=== PATIENT | female | born 1975 | race Hispanic/Latino ===

== ENCOUNTER → 2018-08-11 | Outpatient (CLI) | payer SELFPAY | LOC: LAB.O 10:05 | PROVIDERS: ATTEND Nurse Practitioner Family | DX: R73.9 Hyperglycemia, unspecified (principal) ==

== ENCOUNTER → 2018-12-20 | Outpatient (CLI) | payer OTHER | LOC: LAB.O 07:34 | PROVIDERS: ATTEND Nurse Practitioner Family | DX: E11.65 Type 2 diabetes mellitus with hyperglycemia (principal) ==

== ENCOUNTER → 2019-10-28 | Outpatient (CLI) | payer SELFPAY ==
--- NOTE | 2019-10-28 13:26 | US ---
EXAM DESCRIPTION: Abdomen,Limited: ULTRASOUND. CLINICAL HISTORY: RIGHT UPPER QUADRANT PAIN COMPARISON: Ultrasound gallbladder October 2013. Images only. TECHNIQUE: Transabdominal scanning: lema-scale mode. Doppler mode. FINDINGS: Gallbladder: normal size, shape, echogenicity; no intraluminal stones or sludge. No fluid around the gallbladder. No wall thickening. 2.4 mm. Non-tender with transducer pressure. Common bile duct: caliber 5.7 mm within normal limits. Liver: Increased echogenicity; contour liver capsule smooth where seen. No fluid around the liver. Intrahepatic biliary ducts normal caliber. Doppler hepatopedal flow and normal caliber portal vein.. Long axis right lobe 18.6 cm. Pancreas: normal size and echogenicity. Duct not seen. Proximal abdominal aorta: Normal caliber 2.1 cm.. IVC: visualized and normal caliber. Right kidney: long axis measures 11.4 cm. Normal cortical Echogenicity. Normal cortical thickness. No echogenic stones or hydronephrosis. IMPRESSION: 1. Normal ultrasound of the gallbladder with no wall thickening. Nontender. Normal caliber of the common bile duct. 2. Steatosis of the liver with mild enlargement. Physiologic vascularity. No ascites. Normal ultrasound of the pancreas. 3. Normal caliber of the proximal abdominal aorta and IVC. Negative findings right kidney. Electronically signed by: Ken Perkins MD 10/28/2019 1:24 PM CDT
== END ==
LOC: YCFC.O 12:21
PROVIDERS: ATTEND Family Medicine
DX: K76.0 Fatty (change of) liver, not elsewhere classified (principal); E11.9 Type 2 diabetes mellitus without complications

== ENCOUNTER → 2020-02-20 | Outpatient (CLI) | payer SELFPAY | LOC: YCFC.O 09:25 | PROVIDERS: ATTEND Family Medicine | DX: E11.65 Type 2 diabetes mellitus with hyperglycemia (principal) ==

== ENCOUNTER → 2020-05-29 | Outpatient (CLI) | payer OTHER | LOC: YCFC.O 15:40 | PROVIDERS: ATTEND Nurse Practitioner Family | DX: Z20.828 Contact with and (suspected) exposure to other viral communicable diseases (principal) ==